=== PATIENT | male | born 1995 | race Caucasian/White ===

== ENCOUNTER 2019-03-11 03:32 | Emergency (ER) | payer OTHER ==
[~2019-03-11] VITALS: Ht 170.2 cm; Wt 73.6 kg
--- NOTE | 2019-03-11 03:46 | NUR ---
PT C/O SOB W/O CP. PT REPORTS HX OF ASTHMA, USED INHALER TONIGHT W/O RELIEF. PT DENIES CHUN, N/V/D. PT REPORTS HEAVY VAPE USE AND USE OF COCAINE LAST NIGHT. ERP IN TO EVAL PT. PT CONNECTED TO MONITORING, CALL LIGHT WITHIN REACH, ALL SAFETY MEASURES IN PLACE.
[2019-03-11] MEDS ORDERED: ALBUTEROL/IPRATROPIUM 2.5MG/0.5MG, 3 ML ONE ×2 (03:51→04:27)
[2019-03-11] MEDS ORDERED: ALBUTEROL/IPRATROPIUM 2.5MG/0.5MG, 3 ML NPPB ONE ×2 (04:00→04:30)
[2019-03-11] MEDS ORDERED: DEXAMETHASONE 4 MG TABLET ONE (04:19)
[2019-03-11] MEDS ORDERED: DEXAMETHASONE 4 MG TABLET PO ONE (04:30)
--- NOTE | 2019-03-11 04:35 | NUR ---
PT RECEIVED X2 BREATHING TREATMENTS AND REPORTS IMPROVED BREATHING. VSS. CALL LIGHT WITHIN REACH.
[2019-03-11 04:40] VITALS: BP 134/60
== END 2019-03-11 04:49 | disposition home or self-care (01) ==
LOC: ED 04:44
DX: J45.31 Mild persistent asthma with (acute) exacerbation (principal)
CPT/HCPCS: 71046; 94640; 99284; J7620